=== PATIENT | male | born 1950 | race Caucasian/White ===

== ENCOUNTER 2022-10-16 19:00 | Outpatient (CLI) | payer MEDICARE | END 2022-10-16 19:01 | disposition home or self-care (01) | LOC: SLEEPLAB 19:00 | PROVIDERS: ATTEND Otolaryngology Otolaryngic Allergy | DX: G47.33 Obstructive sleep apnea (adult) (pediatric) (principal); G47.31 Primary central sleep apnea; R53.83 Other fatigue | CPT/HCPCS: 95810 ==

== ENCOUNTER 2023-02-11 17:00 | Outpatient (CLI) | payer MEDICARE | END 2023-02-11 17:01 | disposition home or self-care (01) | LOC: SLEEPLAB 17:00 | PROVIDERS: ATTEND Otolaryngology Otolaryngic Allergy | DX: G47.33 Obstructive sleep apnea (adult) (pediatric) (principal); G47.61 Periodic limb movement disorder; R53.83 Other fatigue | CPT/HCPCS: 95811 ==

== ENCOUNTER 2023-11-25 08:00 | Outpatient (CLI) | payer MEDICARE | END 2023-11-25 08:01 | LOC: PET 08:00 | PROVIDERS: ATTEND Internal Medicine Hematology & Oncology | DX: C76.0 Malignant neoplasm of head, face and neck (principal) | CPT/HCPCS: 78815; A9552 ==

== ENCOUNTER 2023-12-01 09:59 | Outpatient (CLI) | payer MEDICARE ==
[2023-12-01] MEDS ORDERED: Magnevist 469MG/ML 20 ML VIAL ONE (13:02)
== END 2023-12-01 10:00 | disposition home or self-care (01) ==
LOC: MRI 09:59
PROVIDERS: ATTEND Radiology Radiation Oncology
DX: C76.0 Malignant neoplasm of head, face and neck (principal); R59.0 Localized enlarged lymph nodes
CPT/HCPCS: 70553; A9579

== ENCOUNTER 2024-02-10 11:18 | Emergency (ER) | payer MEDICARE ==
[2024-02-10 12:17] LABS: #Basophils Less than 0.03 10x3/uL (0.0-0.2); %Basophils 0.3 % (0.0-1.0); %Eosinophils 2.7 % (0.0-10.0); %Lymphocytes 9.1 % (21.0-51.0); %Monocytes 9.1 % (0.0-10.0); %Neutrophils 78.5 % (42.0-75.0); Hematocrit 43.9 % (42.0-52.0); Mean Corpuscular HGB CONC 34.2 g/dL (32.0-36.0); Mean Corpuscular Hemoglobin 31.6 pg (27.0-31.0); Mean Corpuscular Volume 92.6 fL (78.0-98.0); Mean Platelet Volume 9.6 fL (7.4-10.4); Platelet Count 180 10x3/uL (130-400); RBC Distribution Width 13.1 % (11.5-14.5); Red Blood Cell (RBC) Count 4.74 mill/uL (4.70-6.10)
[2024-02-10 12:33] LABS: ALT (SGPT) 26 U/L (8-55); AST (SGOT) 19 U/L (5-34); Albumin 4.1 g/dL (3.4-4.8); Alkaline Phosphatase 68 U/L (40-110); Anion Gap 15 mmol/L (10-20); BUN (Urea Nitrogen) 32 mg/dL (8.4-25.7); Bilirubin, Total 0.9 mg/dL (0.2-1.2); Calc. Creatinine Clearance 0 mL/min (70-130); Calcium 9.8 mg/dL (7.8-10.44); Carbon Dioxide 24 mmol/L (23-31); Chloride 102 mmol/L (98-107); Estimated GFR 55; Globulin 2.8 g/dL (2.4-3.5); Glucose 130 mg/dL (83-110); Lipase 111 U/L (8-78); Potassium 4.4 mmol/L (3.5-5.1); Protein, Total 6.9 g/dL (5.8-8.1); Sodium 137 mmol/L (136-145)
[2024-02-10 12:37] LABS: Troponin I Less than 0.010 ng/mL (< 0.028)
[2024-02-10 13:51] LABS: Magnesium 1.7 mg/dL (1.6-2.6)
[2024-02-10] MEDS ORDERED: Aspirin Chewable 81 MG TAB ONE (15:25)
[2024-02-10 15:59] LABS: Troponin I Less than 0.010 ng/mL (< 0.028)
== END 2024-02-10 16:20 | disposition home or self-care (01) ==
LOC: ERS 11:18
DX: R07.2 Precordial pain (principal); I25.10 Atherosclerotic heart disease of native coronary artery without angina pectoris; I25.2 Old myocardial infarction
CPT/HCPCS: 36415; 71045; 80053; 83690; 83735; 84484; 85025; 85379; 93005

== ENCOUNTER 2024-05-28 09:30 | Outpatient (CLI) | payer MEDICARE ==
[2024-05-28] MEDS ORDERED: diphenhydrAMINE 50 MG/ML VIAL ONE (10:11)
[2024-05-28] MEDS ORDERED: Iopamidol 370 76% 100 ML VIAL ONE (15:26)
== END 2024-05-28 09:31 | disposition home or self-care (01) ==
LOC: CT 09:30
PROVIDERS: ATTEND Radiology Radiation Oncology
DX: C76.0 Malignant neoplasm of head, face and neck (principal); K76.89 Other specified diseases of liver; I25.10 Atherosclerotic heart disease of native coronary artery without angina pectoris
CPT/HCPCS: 36415; 70491; 71260; 82565 ×2; J1200; Q9967

== ENCOUNTER 2025-01-11 09:58 | Outpatient (CLI) | payer MEDICARE ==
[2024-08-31 10:23] LABS: Estimated GFR - POC 58.0
[~2025-01-11 09:58] MED LIST: Iopamidol 370 76% 100 ML VIAL ONE; diphenhydrAMINE 50 MG/ML VIAL ONE
[2025-01-11] MEDS ORDERED: Iopamidol 370 76% 100 ML VIAL ONE (11:38)
== END 2025-01-11 09:59 | disposition home or self-care (01) ==
LOC: CT 09:58
PROVIDERS: ATTEND Radiology Radiation Oncology
DX: C76.0 Malignant neoplasm of head, face and neck (principal); C08.9 Malignant neoplasm of major salivary gland, unspecified; R16.0 Hepatomegaly, not elsewhere classified; K76.89 Other specified diseases of liver; K57.30 Diverticulosis of large intestine without perforation or abscess without bleeding; R60.0 Localized edema; R91.1 Solitary pulmonary nodule
CPT/HCPCS: 36415; 70491; 71260 ×2; 74177 ×2; 82565; J1200; Q9967